=== PATIENT | female | born 1950 | race Caucasian/White ===

== ENCOUNTER 2024-04-25 09:48 | Outpatient (AMB) | payer OTHER, SELFPAY ==
--- NOTE | 2024-04-25 09:51 | MHC.OFFVIS ---
Vital Signs 04/25/24 10:00 Height 5 ft 5 in Weight 245 lb BMI 40.8 Intake Visit Reasons: Hemorrhoids Intake Note: This patient presents for an assessment for hemorrhoids. Pt c/o; Onset 1 year, reports intermittent rectal bleeding, reports for the past month she has been having bleeding with almost every bowel movements, reports she has noticed that when she experience rectal bleeding for the first time she had a good size blood clot. Pet Counselor Required: No Accompanied by: Self / Same As Patient Allergies adhesive tape Allergy (Severe, Verified 04/25/24 10:01) Hives azithromycin Allergy (Severe, Verified 04/25/24 10:01) Unknown Penicillins Allergy (Severe, Verified 04/25/24 10:01) Unknown Medication List - Last Reconciled 04/25/24 by Harjeet Faustin MD apixaban (Eliquis) 5 mg PO BID metoprolol succinate ER 25 mg PO DAILY propafenone 300 mg PO TID HPI HPI Hemorrhoids: Details: [age] year old female referred for bleeding hemorrhoids. She always has had some passage of bright blood per rectum periodically seen on wiping. She saw surgeon a year ago and was told that did have hemorrhoids. However, she says that her bleeding seems to have been more frequent for the past few months and seems to be happening practically every day. She is on anticoagulation for atrial fibrillation. She would notice bright blood per rectum on wiping as well as on the toilet bowl with bowel movements She denies any pain in the anus. She does note that she has hemorrhoids as she feels it outside her anus. She denies any GI complaints. [facility] Medical History (Updated 04/25/24 @ 10:23 by Harjeet Faustin MD) Chronic anticoagulation Atrial fibrillation Hypertension Bleeding hemorrhoids Surgical History (Updated 04/25/24 @ 10:03 by MANJINDER Gannon) Hx of breast lump removal History of tonsillectomy Family History Mother Breast cancer Social History Alcohol intake: never Patient Tobacco Use Status: Never used Tobacco Review of Systems Const Denies chills and Denies fever(s) Card Denies chest pain, Denies dyspnea and Denies dyspnea on exertion Resp Denies cough, Denies dyspnea and Denies dyspnea on exertion GI Reports hematochezia and Denies change in bowel habits Denies hematuria Musc Denies back pain and Denies limited range of motion Neuro Denies focal weakness and Denies convulsions Psych Denies depression and Denies mood swings Physical Exam Vital Signs: BMI result Body Mass Index 40.8 Const Other: Obese looking General: comfortable and no acute distress Orientation/consciousness: patient oriented x3 Neck Neck: Yes no lymphadenopathy Resp Auscultation: clear to auscultation bilaterally Cardio Other: She has history of AFib Rhythm: regular rhythm GI Other: Rectal exam shows large external hemorrhoids were prolapsing component posteriorly and a smaller 1 anteriorly Palpation (GI): Soft to palpation, nontender and no guarding Neuro General: patient oriented x3 Office Procedures Anoscopy She was in michaelle-knife position. The anoscope was gently inserted. A full examination of the anal canal was done. She had large internal external hemorrhoidal columns on the posterior area as well as anteriorly. The internal component seemed to prolapse. There was no bleeding. There was no fissure or ulceration. There was no induration. [id number] Assessment & Plan Assessment & Plan (1) Bleeding hemorrhoids: Code(s): K64.9 - Unspecified hemorrhoids Category: Medical Plan: She now has more frequent passage of bright blood per rectum. This appears to be outlet bleeding from her hemorrhoids. I therefore explained to her the option of proceeding with hemorrhoidectomy. I discussed the technique of this procedure with exam under anesthesia. I reviewed the risks including but not limited to bleeding, infections, postop pain, as well as the benefits and alternatives. I reviewed with her what to expect postoperatively. She is to stop her anticoagulation for about 3 days and this will be discussed with her intellectual property manager I also recommended for her to consider going for a colonoscopy has never had colonoscopy before. She says she will call me down the line to follow-up after she talks to her primary care physician. Coding Level of Care Code New Pt Level 3 (19878) Diagnoses Bleeding hemorrhoids K64.9 CPT Codes Details - CPT: 51433-Kffnmajx ([id number])
[2024-04-25 10:00] VITALS: BMI 40.8
== END 2024-04-25 10:27 | disposition home or self-care (01) ==
PROVIDERS: PCP Internal Medicine; Visit Provider Surgery
DX: K64.9 Unspecified hemorrhoids (principal)
CPT/HCPCS: 46600; 99203

== ENCOUNTER → 2024-04-25 09:48 | Outpatient (BNVA) | payer OTHER, SELFPAY | PROVIDERS: PCP Internal Medicine; Visit Provider Surgery | DX: K64.8 Other hemorrhoids (principal); K64.4 Residual hemorrhoidal skin tags | CPT/HCPCS: 46600 ==